=== PATIENT | female | born 1965 | race African-American/Black ===

== ENCOUNTER 2018-09-25 21:39 | Emergency (ER) | payer MEDICAID ==
[~2018-09-25] VITALS: Ht 165.1 cm; Wt 59.0 kg
[2018-09-25] MEDS ORDERED: SODIUM CHLORIDE 0.9% 1,000 ML IV ONE (21:59)
[2018-09-25 22:45] LABS: BASOPHILS % 0.1 % (0.0-2.0); EOSINOPHILS % 1.2 % (0.0-5.0); HEMATOCRIT. 35.6 % (36.0-48.0); HEMOGLOBIN. 11.8 g/dL (12.0-16.0); LYMPHOCYTES % 54.9 % (20.0-50.0); MEAN CORPUSCULAR HEMOGLOBIN 31.8 pg (28.0-32.0); MEAN CORPUSCULAR VOLUME 95.6 fL (81.0-99.0); MEAN PLATELET VOLUME 7.8 fl (7.4-10.4); MONOCYTES % 6.6 % (2.0-8.0); NEUTROPHILS % 37.2 % (40.0-76.0); PLATELET 213 x1000/uL (130-400); RED BLOOD CELL COUNT 3.72 mill/uL (4.2-5.4); RED CELL DISTRIBUTION WIDTH 14.9 % (11.6-14.6)
[2018-09-25 22:50] LABS: CHLORIDE 111 mEq/L (98-107)
[2018-09-25 22:51] LABS: INR 1.1; PROTHROMBIN TIME 10.8 sec (9.1-11.1)
[2018-09-25] MEDS ORDERED: POTASSIUM CHLORIDE 20MEQ TABLET SR PO SCH (23:00)
[2018-09-25 23:07] LABS: ETHANOL BLOOD 315 mg/dL
[2018-09-25] MEDS ORDERED: KETOROLAC 15MG/ML VIAL IV SCH (23:15)
[2018-09-26 00:45] VITALS: BP 133/90
== END 2018-09-26 00:48 | disposition home or self-care (01) ==
LOC: ER 21:39
DX: F10.229 Alcohol dependence with intoxication, unspecified (principal); E87.6 Hypokalemia; R51 Headache; I10 Essential (primary) hypertension; F17.210 Nicotine dependence, cigarettes, uncomplicated; Y90.8 Blood alcohol level of 240 mg/100 ml or more; Z88.6 Allergy status to analgesic agent
CPT/HCPCS: 36415; 70450; 80053; 80320; 84484; 85025; 85610; 93005; 96374; 99284; J1885; J7030; Z7610; G0480

== ENCOUNTER 2022-11-17 16:05 | Emergency (ER) | payer MEDICAID, OTHER ==
[~2022-11-17] VITALS: Ht 170.2 cm; Wt 50.0 kg
[2022-11-17] MEDS ORDERED: IBUPROFEN 600MG TABLET PO STA (16:36)
[2022-11-17] MEDS ORDERED: FLUORESCEIN SODIUM 1MG/STRIP RIGHTEYE ONE (16:45)
[2022-11-17] MEDS ORDERED: BALANCED SALT IRRIG SOLN 15ML IR ONE (16:45)
[2022-11-17] MEDS ORDERED: TETRACAINE 0.5% OPHTH DROPS 4ML RIGHTEYE ONE (16:45)
[2022-11-17 17:41] VITALS: BP 154/84
[2022-11-17] MEDS ORDERED: CIPR5DRO RIGHTEYE (18:17)
[2022-11-17] MEDS ORDERED: NAPR-681 PO (18:17)
[2022-11-17] MEDS ORDERED: DOXY100T28 PO (18:17)
== END 2022-11-17 18:55 | disposition home or self-care (01) ==
LOC: ER 16:05
DX: H10.31 Unspecified acute conjunctivitis, right eye (principal)
CPT/HCPCS: 99283